=== PATIENT | female | born 1990 | race Caucasian/White ===

== ENCOUNTER 2017-08-01 20:34 | Emergency (ER) | payer BC ==
--- NOTE | ~2017-08-01 | ER ---
PATIENT'S NAME: ALICIA SALDANA [facility] AGE: 27 Y [address] ROOM: [place] [address] LOCATION: [facility] ADMIT DATE: 08/01/2017 ER/Outpatient Report DISCHARGE DATE: 08/01/2017 FAMILY PHYSICIAN: Lori Vega APRN ATTENDING PHYSICIAN: Jayme Aguirre Time of Arrival: 2035 hours. Time of Evaluation: 2044 hours. CHIEF COMPLAINT: Heavy vaginal bleeding. HISTORY OF PRESENT ILLNESS: The patient states she has been having problems with heavy vaginal bleeding since Tuesday07/29/2017. She has been nauseated, has vomited x1, has a headache. Today, she says the bleeding is worse. She is having some lower abdominal cramping. Denies having any urinary frequency or pain. States had a normal bowel movement yesterday. Did go to the [facility] and was evaluated yesterday. They started her on oral control as well as Advil 800 mg. She does have a control implant, which was put in August, and she has not had a period since that time. ALLERGIES: NO KNOWN ALLERGIES. CURRENT MEDICATIONS: On her chart and were reviewed by me. PAST MEDICAL HISTORY: Depression. PAST SURGICAL HISTORY: Knee surgery, nose surgery, appendectomy. SOCIAL HISTORY: She denies use of tobacco, drugs, and drinks alcohol on a rare occasion. REVIEW OF SYSTEMS: All negative other than those mentioned in the HPI. PHYSICAL EXAMINATION: VITAL SIGNS: She weighs 69 kg, blood pressure is 129/72, pulse of 118, respirations 16, temp of 99 tympanic, O2 saturation is 97% on room air. GENERAL: She is awake, alert, and oriented x4. SKIN: Keys, warm, and dry. PATIENT'S NAME: ALICIA SALDANA [facility] AGE: 27 Y [address] ROOM: [place] [address] LOCATION: [facility] ADMIT DATE: 08/01/2017 ER/Outpatient Report DISCHARGE DATE: 08/01/2017 FAMILY PHYSICIAN: Lori Vega APRN ATTENDING PHYSICIAN: Jayme Aguirre RESPIRATIONS: Even and nonlabored. HEENT: Pupils are equal reactive to light. She does have some photosensitivity. Oropharynx is clear. NECK: Supple. No lymphadenopathy. LUNGS: Lung sounds are clear throughout. HEART: Regular rate and rhythm. ABDOMEN: Soft, nondistended. Bowel sounds are present. EMERGENCY ROOM COURSE: Saline lock was initiated. Fluids of normal saline were started at a wide- open rate. She was given Zofran 4 mg IV. LABORATORY DATA AND X-RAYS: Lab work was completed. CBC is within normal limits. Chem panel is within normal limits. Serum is negative. Ultrasound was completed. They report that the patient has a 2.9 simple cyst of the right ovary, but otherwise is normal, endometrium is thin. She has good flow to the ovaries. The patient reports she did feel somewhat better with the fluids. She was given Toradol 15 mg IV for the headache. IMPRESSION: 1. Dysmenorrhea. 2. Headache. PLAN: Home, rest, fluids. I encouraged her to continue control as prescribed. Continue her other medications. If symptoms do not improve in the next 2 to 3 days, she is to follow up with her primary provider. She and her family verbalized understanding. GEOFF KENDRICK APRN FOR MD BOAZ SILVA/althea /[id number] d: 08/02/17 0100 t: 08/03/17 1559, OUTPATIENT REPORT
[~2017-08-01 20:34] MED LIST: ACETAMINOPHEN325 MG PO; CALCIUM CARBON500 MG PO; KEFLEX500 MG PO; MIRALAX17 GM PO; NEXIUM20 MG PO; NORCO 5-325 MG1 TAB PO; PHENERGAN25 M1 PO; PRENATAL 1+1)(P1 TAB PO; ZOFRAN8 M1 PO
[2017-08-01 21:11] LABS: BASOPHIL % 0.4 %; EOSINOPHIL % 0.2 %; HEMATOCRIT 34.4 % (33.0-46.0); HEMOGLOBIN 11.7 g/dL (11.0-15.0); IMMATURE GRANULOCYTE % 0.3 %; LYMPHOCYTE # 2.8 K/uL (0.8-4.0); LYMPHOCYTE % 28.9 %; MCH 28.5 pg (27.0-34.0); MCV 83.9 fl (83.0-98.0); MONOCYTE # 0.5 K/uL (0.0-1.0); MONOCYTE % 4.8 %; MPV 11.4 fl (9.4-12.4); NEUTROPHIL # (ANC) 6.4 K/uL (1.8-7.8); NEUTROPHIL % 65.4 %; NRBC % 0 /100WBC (0-0.00); PLATELET COUNT 240 K/uL (150-450); RDW-CV 12.8 % (11.9-14.6); WBC 9.7 K/uL (4.0-11.0)
[2017-08-01 21:29] LABS: ALBUMIN 3.9 gm/dL (3.5-5.0); ALK PHOS 45 IU/L (33-138); ALT 21 IU/L (12-78); ANION GAP 9.6 (10.0-19.0); AST 19 IU/L (10-40); BLOOD UREA NITROGEN 13 mg/dL (6-24); CALCIUM 8.4 mg/dL (8.5-10.5); CHLORIDE 110 mMol/L (96-110); CO2 25 mMol/L (22-32); CREATININE 0.7 mg/dL (0.5-1.1); POTASSIUM 3.6 mMol/L (3.7-5.1); SODIUM 141 mMol/L (135-145); TOTAL BILIRUBIN 0.3 mg/dL (0.0-1.5)
== END 2017-08-01 22:09 | disposition disaster alternative care site (69) ==
LOC: GMED 20:34
PROVIDERS: Emergency Medicine
DX: N94.6 Dysmenorrhea, unspecified (principal); R51 Headache; F32.9 Major depressive disorder, single episode, unspecified; Z98.890 Other specified postprocedural states; Z79.899 Other long term (current) drug therapy
CPT/HCPCS: J1885; J2405; J7030